=== PATIENT | female | born 2000 | race African-American/Black ===

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

== ENCOUNTER 2020-11-29 23:25 | Emergency (ER) | payer OTHER ==
[~2020-11-29] VITALS: Ht 165.1 cm; Wt 114.3 kg
[2020-11-29 23:29] VITALS: BP 129/84
== END 2020-11-30 00:17 | disposition home or self-care (01) ==
LOC: ER 23:25
DX: U07.1 COVID-19 (principal)